=== PATIENT | male | born 1995 | race Hispanic/Latino ===

== ENCOUNTER 2016-09-04 08:08 | Emergency (ER) | payer MEDICAID ==
[2016-09-04 08:19] VITALS: BP 123/52; PULSE 85; RESP 18; TEMP 97.8; O2SAT 99
[2016-09-04] MEDS ORDERED: Promethazine 12.5 mg/10 ml Syrup PO STA (09:20)
[2016-09-04] MEDS ORDERED: Albuterol-Ipratrop 3 mg / 0.5 (3 ml) UD ONE ×2 (09:20→09:21)
[2016-09-04] MEDS ORDERED: Promethazine 6.25 MG/5 ML CUP ONE (09:20)
[2016-09-04] MEDS: Albuterol-Ipratrop 3 mg / 0.5 (3 ml) UD INH STA ×3 (09:31→10:00)
[2016-09-04] MEDS ORDERED: Promethazine 6.25 MG/5 ML CUP PO STA (09:36)
--- NOTE | 2016-09-04 10:44 | ED PDOC ---
HPI: CCC, URI, Sore Throat Time Seen by Provider: 09/04/16 09:15 Chief Complaint (Nursing): Cough, Cold, Congestion Chief Complaint (Provider): Cough, Cold, Congestion History Per: Patient History/Exam Limitations: no limitations Onset/Duration Of Symptoms: Days Current Symptoms Are (Timing): Still Present Location Of Pain: Throat Sick Contacts (Context): None Associated Symptoms: Cough Ear Symptoms: Bilateral: None Severity: Mild Additional Complaint(s): Patient is a 21 year old male who presents to ED for evaluation of cough with sore throat for several days. Patient states he was on [place] [employer] [place] where other people were coughing as well. Denies chest pain, SOB or fever. Past Medical History Reviewed: Historical Data, Nursing Documentation, Vital Signs Vital Signs: Last Vital Signs Temp 97.8 F 09/04/16 08:18 Pulse 85 09/04/16 08:18 Resp 18 09/04/16 08:18 BP 123/52 L 09/04/16 08:18 Pulse Ox 99 09/04/16 10:45 - Medical History PMH: No Chronic Diseases - Surgical History Surgical History: No Surg Hx - Family History Family History: States: No Known Family Hx - Living Arrangements Living Arrangements: With Family - Social History Current smoker - smoking cessation education provided: Yes Alcohol: None Drugs: Denies - Home Medications Home Medications: Ambulatory Orders Medication Instructions Recorded Albuterol HFA [Ventolin HFA 90 1 puff IH Q4 PRN #1 inhaler 09/04/16 mcg/actuation (8 g)] Promethazine [Phenergan Tab] 25 mg PO BID #24 tab 09/04/16 - Allergies Allergies/Adverse Reactions: Allergies Allergy/AdvReac Type Severity Reaction Status Date / Time No Known Allergies Allergy Verified 09/04/16 08:26 Review of Systems ROS Statement: Except As Marked, All Systems Reviewed And Found Negative Constitutional: Negative for: Fever, Chills ENT: Positive for: Throat Pain. Negative for: Ear Pain, Ear Discharge Cardiovascular: Negative for: Chest Pain, Palpitations Respiratory: Positive for: Cough. Negative for: Shortness of Breath Physical Exam - Reviewed Nursing Documentation Reviewed: Yes Vital Signs Reviewed: Yes - Physical Exam Appears: Positive for: Non-toxic, No Acute Distress Skin: Positive for: Normal Color, Warm. Negative for: Rash Eye Exam: Positive for: Normal appearance Neck: Positive for: Normal, Painless ROM Cardiovascular/Chest: Positive for: Regular Rate, Rhythm. Negative for: Murmur Respiratory: Positive for: Normal Breath Sounds. Negative for: Respiratory Distress Back: Positive for: Normal Inspection Extremity: Positive for: Normal ROM. Negative for: Pedal Edema Neurologic/Psych: Positive for: Alert, Oriented - ECG O2 Sat by Pulse Oximetry: 99 (RA) Pulse Ox Interpretation: Normal Medical Decision Making Medical Decision Making: Time: 914 Initial impression: Bronchospasm Initial plan: -- CXR -- Duoneb, Promethazine 1000AM: Xray neg, instructed patient on smoking cessation and told to f/u in clinic. Scribe Attestation: Documented by Twila Austin acting as a scribe for Chaka Freeman MD MD Scribe Attestation: All medical record entries made by the Scribe were at my direction and personally dictated by me. I have reviewed the chart and agree that the record accurately reflects my personal performance of the history, physical exam, medical decision making, and the department course for this patient. I have also personally directed, reviewed, and agree with the discharge instructions and disposition. Disposition - Clinical Impression Clinical Impression: Cough - Disposition Referrals: [facility] [Outside] Disposition Time: 10:30 Condition: STABLE Prescriptions: Albuterol HFA [Ventolin HFA 90 mcg/actuation (8 g)] 1 puff IH Q4 PRN #1 inhaler PRN Reason: Cough Promethazine [Phenergan Tab] 25 mg PO BID #24 tab Instructions: How to Stop Smoking (ED), Acute Cough (ED)
--- NOTE | 2016-09-04 10:56 | RAD ---
HISTORY: r/o PNA COMPARISON: No prior. TECHNIQUE: Chest PA and lateral FINDINGS: LUNGS: The lungs are well inflated and clear. PLEURA: No significant pleural effusion identified. No pneumothorax apparent. CARDIOVASCULAR: Normal. OSSEOUS STRUCTURES: No significant abnormalities. VISUALIZED UPPER ABDOMEN: Normal. OTHER FINDINGS: None. IMPRESSION: No active pulmonary disease.
== END 2016-09-04 10:59 | disposition home or self-care (01) ==
LOC: H.ER 08:08
DX: J98.01 Acute bronchospasm (principal); J02.9 Acute pharyngitis, unspecified; F17.200 Nicotine dependence, unspecified, uncomplicated

== ENCOUNTER 2016-09-04 21:09 | Emergency (ER) | payer MEDICAID ==
[2016-09-04 21:19] VITALS: BP 118/66; RESP 16; TEMP 98.2; O2SAT 99
--- NOTE | 2016-09-04 23:43 | ED PDOC ---
HPI: Psych/Substance Abuse Time Seen by Provider: 09/04/16 21:30 Chief Complaint (Nursing): Psychiatric Evaluation Chief Complaint (Provider): Hearing voices x 6 hours History Per: Patient History/Exam Limitations: no limitations Onset/Duration Of Symptoms: Hrs Current Symptoms Are (Timing): Gone Now Additional Complaint(s): Pt states he has history of bipolar and a little bit of schizophrenia. Pt states he has not taken medications in 1 year. Pt states he recently traveled to [facility] but decided to come to [place]. Pt was seen earlier today for URI symptoms. Pt states he was not hearing voices at that time. Pt denies SI/HI. Pt calm and cooperative. Pt requesting food multiple times in the ER. Past Medical History Reviewed: Historical Data, Nursing Documentation, Vital Signs Vital Signs: Last Vital Signs Temp 98.2 F 09/04/16 21:14 Pulse 100 H 09/04/16 21:14 Resp 16 09/04/16 21:14 BP 118/66 09/04/16 21:14 Pulse Ox 99 09/04/16 21:14 - Medical History PMH: Bipolar Disorder - Family History Family History: States: No Known Family Hx - Home Medications Home Medications: Ambulatory Orders Medication Instructions Recorded Albuterol HFA [Ventolin HFA 90 1 puff IH Q4 PRN #1 inhaler 09/04/16 mcg/actuation (8 g)] Promethazine [Phenergan Tab] 25 mg PO BID #24 tab 09/04/16 - Allergies Allergies/Adverse Reactions: Allergies Allergy/AdvReac Type Severity Reaction Status Date / Time No Known Allergies Allergy Verified 09/04/16 21:14 Review of Systems ROS Statement: Except As Marked, All Systems Reviewed And Found Negative Psych: Positive for: Other Physical Exam - Reviewed Nursing Documentation Reviewed: Yes Vital Signs Reviewed: Yes - Physical Exam Appears: Positive for: Well, Non-toxic, No Acute Distress Head Exam: Positive for: ATRAUMATIC, NORMAL INSPECTION, NORMOCEPHALIC Skin: Positive for: Normal Color, Warm, DRY Eye Exam: Positive for: Normal appearance ENT: Positive for: Normal ENT Inspection Neck: Positive for: Normal, Painless ROM Cardiovascular/Chest: Positive for: Regular Rate, Rhythm Respiratory: Positive for: CNT, Normal Breath Sounds Gastrointestinal/Abdominal: Positive for: Normal Exam, Bowel Sounds, Soft Back: Positive for: Normal Inspection Extremity: Positive for: Normal ROM Neurologic/Psych: Positive for: Alert, Oriented - ECG O2 Sat by Pulse Oximetry: 99 Medical Decision Making Medical Decision Making: Pt sleeping comfortable in ER. Ate a sandwich. Disposition - Clinical Impression Clinical Impression: Adjustment disorder - Patient ED Disposition Is Patient to be Admitted: No Counseled Patient/Family Regarding: Diagnosis, Need For Followup - Disposition [facility]errals: [facility] [[facility]] [facility] [Outside] Disposition: Routine/Home Disposition Time: 23:45 Condition: GOOD Instructions: Stress (ED)
[2016-09-05 00:11] VITALS: PULSE 75
== END 2016-09-05 00:08 | disposition home or self-care (01) ==
LOC: H.ER 21:09
DX: F43.20 Adjustment disorder, unspecified (principal); F20.9 Schizophrenia, unspecified; F31.9 Bipolar disorder, unspecified

== ENCOUNTER 2016-09-12 15:09 | Emergency (ER) | payer MEDICAID ==
[2016-09-12 15:28] VITALS: BP 146/86; PULSE 76; RESP 18; TEMP 98; O2SAT 99
--- NOTE | 2016-09-12 17:24 | ED PDOC ---
HPI: Psych/Substance Abuse Time Seen by Provider: 09/12/16 15:27 Chief Complaint (Nursing): Psychiatric Evaluation Chief Complaint (Provider): Stressed History Per: Patient History/Exam Limitations: no limitations Additional Complaint(s): PT states he is homeless and very overwhelmed because all of the shelters are full. Denies SI/HI Past Medical History Reviewed: Historical Data, Nursing Documentation, Vital Signs Vital Signs: Last Vital Signs Temp 98 F 09/12/16 15:26 Pulse 76 09/12/16 15:26 Resp 18 09/12/16 15:26 BP 146/86 09/12/16 15:26 Pulse Ox 99 09/12/16 15:26 - Medical History PMH: Bipolar Disorder Denies: Diabetes, Hepatitis, HIV, HTN, Seizures, Sexually Transmitted Disease - Surgical History Surgical History: No Surg Hx - Family History Family History: States: No Known Family Hx - Allergies Allergies/Adverse Reactions: Allergies Allergy/AdvReac Type Severity Reaction Status Date / Time No Known Allergies Allergy Verified 09/12/16 16:49 Review of Systems ROS Statement: Except As Marked, All Systems Reviewed And Found Negative Physical Exam - Reviewed Nursing Documentation Reviewed: Yes Vital Signs Reviewed: Yes - Physical Exam Appears: Positive for: Well, Non-toxic, No Acute Distress Head Exam: Positive for: ATRAUMATIC, NORMAL INSPECTION, NORMOCEPHALIC Skin: Positive for: Normal Color, Warm, DRY Eye Exam: Positive for: Normal appearance ENT: Positive for: Normal ENT Inspection Neck: Positive for: Normal, Painless ROM Cardiovascular/Chest: Positive for: Regular Rate, Rhythm Respiratory: Positive for: CNT, Normal Breath Sounds Gastrointestinal/Abdominal: Positive for: Normal Exam, Bowel Sounds, Soft Back: Positive for: Normal Inspection Extremity: Positive for: Normal ROM Neurologic/Psych: Positive for: Alert, Oriented - ECG O2 Sat by Pulse Oximetry: 99 Medical Decision Making Medical Decision Makin:30 - Pt masturbating in room. Asked to stop. Requests food. Crisis evaluation completed. Disposition - Clinical Impression Clinical Impression: Adjustment disorder - Patient ED Disposition Is Patient to be Admitted: No - Disposition Disposition: Routine/Home Disposition Time: 17:24 Condition: GOOD Instructions: Stress (ED)
== END 2016-09-12 17:39 | disposition home or self-care (01) ==
LOC: H.ER 15:09
DX: F43.20 Adjustment disorder, unspecified (principal); F31.9 Bipolar disorder, unspecified

== ENCOUNTER 2016-09-12 17:54 | Emergency (ER) | payer MEDICAID ==
--- NOTE | 2016-09-12 18:08 | ED PDOC ---
HPI: General Adult Time Seen by Provider: 09/12/16 18:01 Chief Complaint (Provider): Pt states he needs to stay in hospital History Per: Patient History/Exam Limitations: no limitations Onset/Duration Of Symptoms: Days Have you had recent travel within the past 21 days to any of the following countries: [place], [place], [place] or [place]?: No Additional Complaint(s): Pt states I am saying all the right things you need to admit me to the psychiatric unit. Pt admits to being homeless and not having a place to go. Pt then gets agitatedP when I explained an evaluation by the crisis team was completed less than an hour ago and he does not meet criteria to stay. Pt than calls me a bitch and states he is leaving and he didn't want EMS to bring him back to the same hospital. PT states I will go to another hospital so I can be admitted. Past Medical History Reviewed: Historical Data, Nursing Documentation, Vital Signs - Medical History PMH: Bipolar Disorder Denies: Diabetes, Hepatitis, HIV, HTN, Seizures, Sexually Transmitted Disease - Surgical History Surgical History: No Surg Hx - Family History Family History: States: Unknown Family Hx - Living Arrangements Living Arrangements: With Family - Allergies Allergies/Adverse Reactions: Allergies Allergy/AdvReac Type Severity Reaction Status Date / Time No Known Allergies Allergy Verified 09/12/16 16:49 Review of Systems ROS Statement: Except As Marked, All Systems Reviewed And Found Negative Psych: Positive for: Psychosis (Hearing voices) Physical Exam - Reviewed Nursing Documentation Reviewed: Yes Vital Signs Reviewed: Yes - Physical Exam Appears: Positive for: Well, Non-toxic, No Acute Distress Head Exam: Positive for: ATRAUMATIC, NORMAL INSPECTION, NORMOCEPHALIC Skin: Positive for: Normal Color, Warm, DRY Eye Exam: Positive for: Normal appearance ENT: Positive for: Normal ENT Inspection Neck: Positive for: Normal, Painless ROM Respiratory: Negative for: Accessory Muscle Use, Respiratory Distress Back: Positive for: Normal Inspection Extremity: Positive for: Normal ROM Neurologic/Psych: Positive for: Alert, Oriented, Gait Disposition - Clinical Impression Clinical Impression: Adjustment disorder - Patient ED Disposition Is Patient to be Admitted: No - Disposition Disposition: Routine/Home Disposition Time: 18:09 Condition: STABLE
== END 2016-09-12 18:15 | disposition home or self-care (01) ==
LOC: H.ER 17:54
DX: F43.20 Adjustment disorder, unspecified (principal); F31.9 Bipolar disorder, unspecified